=== PATIENT | female | born 1955 | race Caucasian/White ===

== ENCOUNTER 2019-01-11 13:08 | Emergency (ER) | payer MEDICARE, OTHER ==
[~2019-01-11] VITALS: Ht 162.6 cm; Wt 99.8 kg
[~2019-01-11 13:08] MED LIST: AMLODIPINE BESY10 MG PO; ASPIRIN EC325 MG; BACTRIM DS TAB1 EACH PO; LASIX40 MG PO; LEVAQUIN500 MG PO; MIRTAZAPINE15 MG PO; NEUPRO1 EAC1 TD; PANTOPRAZOLE SO40 MG PO; PREDNISONE5 MG PO; PROGRAF5 MG PO; REMERON15 M1 PO; Z.0.ALLOPURINOL100 M; Z.0.CLONIDINE HCL0.1; Z.0.HUMALOG100 UNIT/; Z.0.HYDRALAZINE HCL5; Z.0.LANTUS100 UNIT/1; Z.0.LIPITOR20 MG; Z.0.NORVASC5 MG PO; Z.0.ZOLOFT50 MG; ZOLOFT50 MG PO; [UNRECOGNIZED DRUG - OTHER]
--- OUTSIDE RECORDS SUMMARY | 2019-01-11 13:11 | XMS REPORT | Clinical Summary ---
Author Author [facility] Address Unknown Phone Unavailable Care Team Providers Care Global Product Manager Name Role Phone Leonidas Rodriguez MD Unavailable Ronaldo Gleason MD 24 MurrayMukherjeeMelania MD Unavailable Unavailable Wong Posey MD Unavailable Barbara Nevarez MD Unavailable Kamla Caldwell MD Unavailable Sandra Lee PCP Allergies No Known Allergies Medications End Date Status Medication Sig Dispensed Refills Start Date Active mirtazapine (REMERON) 15 Take 15 mg by 0 MG tablet mouth nightly. Active sertraline (ZOLOFT) 100 Take 1.5 30 tablet 0 201 MG tablet tablets (150 5 mg total) by mouth daily. Active pantoprazole (PROTONIX) Take 1 tablet 0 40 MG tablet (40 mg total) 5 by mouth daily. Active sulfamethoxazole-trimetho Take 1 tablet 0 prim (BACTRIM,SEPTRA) (80 mg of 5 400-80 mg per tablet trimethoprim total) by mouth daily. Active tacrolimus (PROGRAF) 0.5 Take 2 mg by 0 MG capsuleIndications: mouth 2 (two) 5 immunosuppression therapy times daily . for lung transplant Active predniSONE (DELTASONE) 5 Take 5 mg by 0 10/20/201 MG tablet mouth daily . 5 Active mycophenolate (MYFORTIC) Take 180 mg 0 180 MG EC tablet by mouth 3 (three) times daily . Active sodium bicarbonate 325 MG Take 325 mg 0 tablet by mouth daily Baking soda 2 teaspoon daily. Active tacrolimus (PROGRAF) 0.5 Take 2 mg by 0 MG capsule mouth 2 (two) times daily . Active amLODIPine (NORVASC) 10 Take 10 mg by 0 MG tablet mouth daily . Active famotidine (PEPCID) 20 MG Take 20 mg by 0 tablet mouth daily. Active cefixime (SUPRAX) 400 mg Take 400 mg 0 tablet by mouth daily Times 7 days . Active Problems Patient Care Coordination Note 1. End-stage renal disease secondary to diabetic nephropathy. A. Left upper arm arteriovenous fistula. B. Elevation of fistula completed 2. Hypertension. 3. Diabetes mellitus, type 2, nephropathy. 4. Gout. 5. Obesity. For gastric sleeve surgery 6. Cerebrovascular disease. A. Right carotid bruit, with 16-49% stenosis in 03/30 by doppler 7. Pelvic pain seeing [facility] rheumatology - need mri results and notes from rheum 8. Cardiac cath in 04/30 with no significant cad 7. Colonoscopy with tubular adenoma A. Continues with GI follow up Problem Noted Date Drainage from wound 06/10/2015 Last Assessment & Plan: Wound healing well. No longer requires BID dressing changes. S/P kidney transplant 06/10/2015 Last Assessment & Plan: Creatinine is 1.24. She is still producing adequate amounts of urine and shows no evidence of rejection. DM (diabetes mellitus) Overview: TYPE 2 L ast Assessment & Plan: Her blood sugars are controlled by her diet. She does not require insulin or oral medications. HTN (hypertension) Last Assessment & Plan: Her blood pressure is not controlled, typically ranging from 120s-160s/80s-90s. Today her SBP is 195 however she has not taken her medication. She will continue to follow with her healthcare interpreter for further adjustments. Gout Obesity Last Assessment & Plan: Losing weight s/p sleeve gastrectomy. Will continue to follow Pulmonary hypertension Overview: pPA 55-60 (05/30/15) Positive cardiac stress test Overview: normal cardiac Cath (05/30/15) Family History Medical History Relation Name Comments Diabetes Father Hypertension Father Diabetes Maternal Grandfather Hypertension Maternal Grandfather Diabetes Maternal Grandmother Hypertension Maternal Grandmother Diabetes Mother Hypertension Mother Diabetes Sister Hypertension Sister Relation Name Status Comments Father Maternal Grandfather Maternal Grandmother Mother Sister Social History Date Tobacco Use Types Packs/Day Years Used Quit: 11/28/2012 Former Smoker Cigarettes 0.4 30 Smokeless Tobacco: Current User Alcohol Use Drinks/Week oz/Week Comments No ONE EVERY 2 MONTHJS Sex Assigned at Date Recorded Not on file Industry Job Start Date Occupation Not on file Not on file Not on file Travel End Travel History Travel Start No recent travel history available. Last Filed Vital Signs Not on file Plan of Treatment Health Maintenance Due Date Last Done Comments INFLUENZA VACCINE 06/19/2018 Implants Device Identifier Shelf Expiration Date Model / Serial / Lot Implanted Type Area Manufactur er 11/16/2017 [id number] / / [id number] Stent,Uret Polaris 5fr X 10cm - Uro Stent Right: Ureter [employer] [id number] [employer]ENT[employer] Implanted: Qty: 1 on 06/01/2015 by Scott Faustin MD Results Not on fileafter 01/10/2018 Insurance Payer Benefit Subscriber ID Type Phone Address Plan / Group MEDICARE MEDICARE A xxxxxxxxxx Medicare B AETNA - MGD CARE AETNA HMO xxxxxxxxxx HMO/POS POS QPOS Advance Directives For more information, please contact: [facility] [address] [place] [phone] Date Inactivated Comments Code Status Date Activated 06/05/2015 7:20 PM Full Code 06/01/2015 1:11 PM This code status was determined by: Patient 06/01/2015 1:10 PM Full Code 05/31/2015 7:45 AM This code status was determined by: Patient 05/31/2015 7:45 AM Full Code 05/30/2015 11:21 PM This code status was determined by: Patient 03/30/2013 2:59 PM Patient will not be resuscitated by any method. Assignment of Code III designation: all existing treatment orders are automatically cancelled. The Attending Practitioner shall write new orders, including orders for feeding, if any, and supportive care. The Attending Practitioner and House Staff (if applicable) will be notified STAT upon cessation of vital signs, but no code will be called, nor will any actions be undertaken to restore vital signs Code THREE 03/30/2013 12:06 PM
--- OUTSIDE RECORDS SUMMARY | 2019-01-11 13:11 | XMS REPORT ---
Author Author [facility] Address Unknown Phone Unavailable Care Team Providers Care Horologist Apprentice Name Role Phone Unavailable Unavailable Problems This patient has no known problems. Allergies, Adverse Reactions, Alerts This patient has no known allergies or adverse reactions. Medications This patient has no known medications. Results Test Description Test Time Test Comments Text Results Atomic Results Result Comments SCR MAMM BILATERAL JUVENCIO CAD DIGITAL 2018-12-08 09:26:00 - SCR MAMM BILATERAL JUVENCIO CAD DIGITALBILATERAL DIGITAL SCREENING MAMMOGRAM 3D/2D WITH CAD: 12/07/2018CLINICAL: Asymptomatic. Current mammographic images were evaluated by either a [employer] The Simple, Fast and Elegant Tablet Sales App M-Vu or an iCAD version 7.2 computer aided detection system. Comparison is made to exams dated 08/09/2017 mammogram, 06/04/2016 mammogram, and 05/27/2015 mammogram - [facility]-. There are scattered fi broglandular tissues in both breasts. No suspicious mass, architectural distortion, malignant type calcification, or lymph node abnormality detected. Breast architecture is stable compared to prior exams.IMPRESSION: NEGATIVEThere is no mammographic evidence of malignancy. Resume annual screening mammography in one year. Olvin Barker M.D. qn/penrad:12/08/2018 09:26:00 Stoneworking Sander: Michelle Ramos , [facility]-FWletter sent: BIRADS 1-2 Normal Mammogram BI-RADS: 1 Negative
[2019-01-11] MEDS ORDERED: ONDANSETRON HCL INJ 2MG/ML 2ML 2 MG/ML VIAL ONE (13:43)
[2019-01-11] MEDS ORDERED: ONDANSETRON HCL 4 MG ORAL DISINTEGRATING TAB PO ONE (13:45)
[2019-01-11] MEDS ORDERED: LIDOCAINE VISC 2% SOLN 15 ML UDC PO ONE (13:45)
[2019-01-11] MEDS ORDERED: ASPIRIN 81 MG CHEW TAB PO ONE (13:45)
[2019-01-11] MEDS ORDERED: MAGNESIUM/ALUMINUM/SIMETHICONE 30 ML UDC PO ONE (13:45)
--- NOTE | 2019-01-11 14:50 | Diagnostic Imaging Report ---
EXAMINATION: CHEST SINGLE (NOT PORTABLE) INDICATION: Chest pain. COMPARISON: Report from chest radiograph dated 03/15/2016, although the images are not available for review. FINDINGS: TUBES and LINES: None. LUNGS: Lungs are well inflated. There is no evidence of lobar pneumonia or pulmonary edema. Mild patchy right basilar opacity, likely atelectasis. There is mild bronchial thickening. PLEURA: No pleural effusion or pneumothorax. HEART AND MEDIASTINUM: The cardiomediastinal silhouette is unremarkable. BONES AND SOFT TISSUES: No acute osseous abnormality. Partially seen cervical spine fixation hardware. UPPER ABDOMEN: No free air under the diaphragm. IMPRESSION: No acute radiographic abnormality. Mild bronchial wall thickening, which may reflect bronchitis in the appropriate clinical setting. Signed by: Dr. Jewels Crowder MD on 01/11/2019 2:47 PM
[2019-01-11] MEDS ORDERED: BELLADONNA ALK/PHENOBARBITAL 5 ML UDC PO SCH (15:00)
[2019-01-11 15:47] LABS: BASOPHILS % 0.5 % (0.0-1.0); EOSINOPHILS % 0.1 % (0.0-6.0); HEMATOCRIT 48.6 % (34.2-44.1); HEMOGLOBIN 15.5 g/dL (12.0-16.0); LYMPHOCYTES # (AUTO) 0.6 (1.0-3.2); LYMPHOCYTES % 6.3 % (18.0-39.1); MEAN CORPUSCULAR HEMOGLOBIN 28.3 pg (28-32); MEAN CORPUSCULAR HGB CONC 31.9 g/dL (31-35); MEAN CORPUSCULAR VOLUME 88.8 fL (81-99); MONOCYTES # (AUTO) 0.9 (0.2-0.8); MONOCYTES % 10.6 % (4.4-11.3); NEUTROPHILS # (AUTO) 7.3 (2.1-6.9); NEUTROPHILS % 81.7 % (38.7-80.0); PLATELET COUNT 186 x10e3/uL (140-360); RED BLOOD COUNT 5.47 x10e6/uL (3.6-5.1); RED CELL DISTRIBUTION WIDTH 13.1 % (11.7-14.4)
[2019-01-11 16:01] LABS: ALBUMIN 3.3 g/dL (3.5-5.0); ALBUMIN/GLOBULIN RATIO 0.8 (0.8-2.0); ANION GAP 17.3 mmol/L (8-16); CALCIUM 10.8 mg/dL (8.4-10.2); CREATININE, SERUM 1.46 mg/dL (0.57-1.11); POTASSIUM 4.3 mmol/L (3.5-5.1)
[2019-01-11 16:07] LABS: CREATINE KINASE MB 2.5 ng/mL (0-5.0)
[2019-01-11 18:48] LABS: BILIRUBIN,URINE 1+ (NEGATIVE); CLARITY,URINE SL CLOUDY (CLEAR); COLOR,URINE STRAW (YELLOW); KETONES,URINE NEGATIVE (NEGATIVE); LEUKOCYTE ESTERASE ,URINE NEGATIVE (NEGATIVE); NITRITE,URINE NEGATIVE (NEGATIVE); PROTEIN,URINE DIPSTICK TRACE (NEGATIVE); URINE UROBILINOGEN 1 mg/dL (0.2 - 1)
[2019-01-11 18:59] LABS: AMORPHOUS SEDIMENT,URINE MANY (FEW); BACTERIA,URINE MANY /HPF
[2019-01-11 19:53] LABS: CREATINE KINASE MB 2.3 ng/mL (0-5.0)
== END 2019-01-11 21:03 | disposition home or self-care (01) ==
LOC: ER 13:08
DX: R10.13 Epigastric pain (principal); R07.89 Other chest pain; R11.2 Nausea with vomiting, unspecified; R19.7 Diarrhea, unspecified; I10 Essential (primary) hypertension; M10.9 Gout, unspecified; Z94.0 Kidney transplant status
CPT/HCPCS: 36415; 71045; 80053; 81001; 82550; 82553; 83690; 83880; 84484; 85025; 87086; 87186; 93005; 99284; J2405

== ENCOUNTER 2019-01-23 16:38 | Inpatient (IN) | payer MEDICARE ==
[~2019-01-23] VITALS: Ht 162.6 cm; Wt 113.9 kg
--- OUTSIDE RECORDS SUMMARY | 2019-01-23 16:42 | XMS REPORT | Clinical Summary ---
Author Author [facility] Address Unknown Phone Unavailable Care Team Providers Care Personalized Living Assistant Name Role Phone Leonidas Rodriguez MD Unavailable Ronaldo Gleason MD 24 MurrayMukherjeeMelania MD Unavailable Unavailable oWng Posey MD Unavailable Barbara Nevarez MD Unavailable [...] 03/30 by doppler 7. Pelvic pain seeing [facility] rheumatology - need mri results and notes [...] She will continue to follow with her groundskeeper supervisor for further adjustments. Gout Obesity Last Assessment [...] Lot Implanted Type Area Manufactur er 11/16/2017 [id number] / / [id number] Stent,Uret Polaris 5fr X 10cm - Uro Stent Right: Ureter [employer] [id number] [employer]ENT[employer] Implanted: Qty: 1 on 06/01/2015 by Scott Faustin MD Results Not on fileafter 01/22/2018 Insurance Payer Benefit Subscriber ID Type Phone Address Plan / Group MEDICARE MEDICARE A xxxxxxxxxx Medicare B AETNA - MGD CARE AETNA HMO xxxxxxxxxx HMO/POS POS QPOS (Home) [place] [address] Advance Directives For more information, please contact: [facility] [address] [place] [phone] Date Inactivated Comments Code Status Date [...]
[2019-01-23] MEDS ORDERED: SODIUM CHLORIDE 0.9% 1000ML 1,000 ML IV STA ×2 (16:50→19:10)
[2019-01-23 17:44] LABS: BASOPHILS # (AUTO) 0.2 (0.0-0.1); BASOPHILS % 0.8 % (0.0-1.0); EOSINOPHILS % 0.2 % (0.0-6.0); HEMATOCRIT 42.6 % (34.2-44.1); HEMOGLOBIN 13.7 g/dL (12.0-16.0); LYMPHOCYTES # (AUTO) 0.6 (1.0-3.2); LYMPHOCYTES % 2.9 % (18.0-39.1); MEAN CORPUSCULAR HEMOGLOBIN 27.4 pg (28-32); MEAN CORPUSCULAR HGB CONC 32.2 g/dL (31-35); MEAN CORPUSCULAR VOLUME 85.2 fL (81-99); MONOCYTES # (AUTO) 1.3 (0.2-0.8); MONOCYTES % 6.3 % (4.4-11.3); NEUTROPHILS # (AUTO) 16.8 (2.1-6.9); NEUTROPHILS % 84.1 % (38.7-80.0); PLATELET COUNT 120 x10e3/uL (140-360); RED CELL DISTRIBUTION WIDTH 14.6 % (11.7-14.4)
--- NOTE | 2019-01-23 17:49 | Diagnostic Imaging Report ---
EXAMINATION: CHEST SINGLE (PORTABLE) INDICATION: Shortness of breath. COMPARISON: . FINDINGS: TUBES and LINES: None. LUNGS: Lungs are well inflated. Mild prominence of the pulmonary vasculature.. PLEURA: No pleural effusion or pneumothorax. HEART AND MEDIASTINUM: Cardiac size is mildly enlarged. BONES AND SOFT TISSUES: No acute osseous abnormality. Partially seen lower cervical spinal fusion hardware. UPPER ABDOMEN: No free air under the diaphragm. IMPRESSION: Findings suggestive of mild pulmonary venous congestion. Signed by: Dr. Andrea Alcocer M.D. on 01/23/2019 5:45 PM
[2019-01-23 17:53] LABS: INR 1.76; PROTHROMBIN TIME 21.2 seconds (11.9-14.5)
[2019-01-23 17:54] LABS: PARTIAL THROMBOPLASTIN TIME 25.1 seconds (23.8-35.5)
[2019-01-23 18:07] LABS: ALBUMIN 2.3 g/dL (3.5-5.0); ALBUMIN/GLOBULIN RATIO 0.7 (0.8-2.0); CREATININE, SERUM 3.71 mg/dL (0.57-1.11); MAGNESIUM 2.1 MG/DL (1.3-2.1)
[2019-01-23 18:15] LABS: B-TYPE NATRIURETIC PEPTIDE2 541.2 pg/mL (0-100)
[2019-01-23 18:27] LABS: CREATINE KINASE MB 7.8 ng/mL (0-5.0); THYROID STIMULATING HORMONE 4.408 uIU/mL (0.350-4.940)
[2019-01-23] MEDS ORDERED: CEFEPIME 2 GM/NS 0.9% 100 ML 100 ML IV NR (18:45)
[2019-01-23 19:01] LABS: CLARITY,URINE CLOUDY (CLEAR); COLOR,URINE YELLOW (YELLOW)
[2019-01-23 19:02] LABS: BILIRUBIN,URINE 2+ (NEGATIVE); KETONES,URINE TRACE (NEGATIVE); LEUKOCYTE ESTERASE ,URINE 2+ (NEGATIVE); NITRITE,URINE NEGATIVE (NEGATIVE); PROTEIN,URINE DIPSTICK TRACE (NEGATIVE); URINE UROBILINOGEN 1 mg/dL (0.2 - 1)
[2019-01-23 19:34] LABS: AMORPHOUS SEDIMENT,URINE MODERATE (FEW); EPITHELIAL CELLS,URINE MANY /LPF; TRANSITIONAL EPI CELLS,URINE MANY; WBC,URINE (MAN) >50 /HPF (0-5)
[2019-01-23] MEDS ORDERED: METRONIDAZOLE500 MG PO (19:46)
[2019-01-23] MEDS ORDERED: SUCRALFATE1 GM PO (19:46)
[2019-01-23] MEDS ORDERED: LISINOPRIL2.5 MG PO (19:46)
[2019-01-23] MEDS ORDERED: TYLENOL WITH C1 EACH PO (19:46)
[2019-01-23] MEDS ORDERED: MYCOPHENOLATE250 MG PO (19:46)
[2019-01-23] MEDS ORDERED: TACROLIMUS1 MG PO (19:48)
--- NOTE | 2019-01-23 19:48 | NUR ---
PATIENT MED REC ORDER INCOMPLETE. PATIENT UNSURE OF ALL HER MEDS
--- NOTE | 2019-01-23 20:05 | Diagnostic Imaging Report ---
EXAM: CT Abdomen and Pelvis WITHOUT contrast INDICATION: Abdominal pain. History of liver cancer. COMPARISON: None. TECHNIQUE: Abdomen and pelvis were scanned utilizing a multidetector helical scanner from the lung base to the pubic symphysis without administration of IV contrast. Absence of intravenous contrast decreases sensitivity for detection of focal lesions and vascular pathology. Coronal and sagittal reformations were obtained. Routine protocol was performed. IV CONTRAST: None. Withheld due to a low GFR. ORAL CONTRAST: Water RADIATION DOSE: Total DLP: 803.42 mGy*cm Estimated effective dose: (DLP x 0.015 x size factor) mSv COMPLICATIONS: None FINDINGS: LINES and TUBES: None. LOWER THORAX: Bibasilar dependent atelectasis. HEPATOBILIARY: The liver is nodular in contour. Evaluate show limited due to the lack of contrast, however, there are low-attenuation lesions scattered throughout the hepatic parenchyma the largest in the hepatic dome estimated at 6.3 cm on image 12; this may represent multifocal HCC versus less likely hepatic metastasis. No biliary ductal dilation. GALLBLADDER: Hyperdense material within the gallbladder lumen suggestive of calculi and No wall thickening. SPLEEN: No splenomegaly. PANCREAS: No focal masses or ductal dilatation. ADRENALS: 8 mm left adrenal adenoma. KIDNEYS/URETERS: No hydronephrosis. Bilateral atrophic kidneys. Transplant kidney in the right iliac fossa without hydronephrosis, or shadowing nephrolithiasis. GI TRACT: No abnormal distention, wall thickening, or evidence of bowel obstruction. Postoperative changes involving the stomach suggestive of bariatric surgery, possibly gastric sleeve. Appendix is normal. Colonic diverticulosis. Evaluate for diverticulitis small limited due to the presence of ascites, and stranding of the mesenteric fat. PELVIC ORGANS/BLADDER: 3 fluid in the cul-de-sac. LYMPH NODES: No lymphadenopathy. VESSELS: There is moderate atherosclerotic disease in the aorta and major arterial branches. PERITONEUM / RETROPERITONEUM: Small volume of perihepatic and perisplenic ascites. BONES: There are degenerative changes in the lumbar spine. Grade 1 anterolisthesis of L4 in relation to L5. SOFT TISSUES: Unremarkable. IMPRESSION: 1. Cirrhotic hepatic morphology. Multifocal hepatic masses not well evaluated with this noncontrast examination however, likely multifocal hepatocellular carcinoma. 2. Findings suggestive of cholelithiasis and gallbladder sludge. 3. Colonic diverticulosis without definite diverticulitis. 4. Small volume ascites. Signed by: Dr. Andrea Alcocer M.D. on 01/23/2019 8:02 PM
[2019-01-23] MEDS ORDERED: ONDANSETRON HCL INJ 2MG/ML 2ML 2 MG/ML VIAL IV PRN (20:15)
[2019-01-23] MEDS ORDERED: VANCOMYCIN 1GM/NS 250 ML 250 ML IV ONE (20:15)
--- OUTSIDE RECORDS SUMMARY | 2019-01-23 20:33 | XMS REPORT | Clinical Summary ---
Author Author [facility] Address Unknown Phone Unavailable Care Team Providers Care Pinked Edge Sewing Machine Operator Name Role Phone Leonidas Rodriguez MD Unavailable [...] 03/30 by doppler 7. Pelvic pain seeing [facility] rheumatology - need mri results and notes [...] She will continue to follow with her executive officer special warfare team for further adjustments. Gout Obesity Last Assessment [...] Lot Implanted Type Area Manufactur er 11/16/2017 [id number] / / [id number] Stent,Uret Polaris 5fr X 10cm - Uro Stent Right: Ureter [employer] [id number] SCIENTIFIC Implanted: Qty: 1 on 06/01/2015 by Scott Faustin MD Results Not on fileafter 01/22/2018 Insurance Payer Benefit Subscriber ID Type Phone Address Plan / Group MEDICARE MEDICARE A xxxxxxxxxx Medicare B AETNA - MGD CARE AETNA HMO xxxxxxxxxx HMO/POS POS QPOS (Home) [place] [address] Advance Directives For more information, please contact: [facility] [address] [place] [phone] Date Inactivated Comments Code Status Date [...]
[2019-01-23] MEDS: CEFEPIME 1GM/NS 0.9% 50 ML 50 ML IV SCH (21:18)
[2019-01-23] MEDS: SODIUM CHLORIDE 0.9% 1000ML 1,000 ML IV SCH (21:51)
[2019-01-23 22:04] LABS: LYMPHOCYTES % (MANUAL) 3 % (19-48); MONOCYTES % (MANUAL) 3 % (3.4-9.0); MYELOCYTES % (MANUAL) 1 % (0-0); NEUTROPHILS % (MANUAL) 91 % (40-74)
[2019-01-23] MEDS: METRONIDAZOLE 500MG/NS 100ML 100 ML IV SCH (23:24)
[2019-01-23] MEDS ORDERED: SODIUM CHLORIDE 0.9% 1000ML 1,000 ML IV ONE (23:45)
[2019-01-24] VITALS (10 sets, daily range): BP systolic 90–119; BP diastolic 41–54
[2019-01-24] MEDS: SODIUM CHLORIDE 0.9% 1000ML 1,000 ML IV SCH (04:12)
[2019-01-24] MEDS: METRONIDAZOLE 500MG/NS 100ML 100 ML IV SCH ×3 (06:12→21:35)
--- NOTE | 2019-01-24 07:24 | NUR ---
pt resting in bed, alert and oriented, no c/o pain or s/s distress. will continue to monitor
[2019-01-24 08:53] LABS: BASOPHILS # (AUTO) 0.1 (0.0-0.1); BASOPHILS % 0.6 % (0.0-1.0); EOSINOPHILS # (AUTO) 0.1 (0.0-0.4); EOSINOPHILS % 0.7 % (0.0-6.0); HEMATOCRIT 38.1 % (34.2-44.1); HEMOGLOBIN 12.9 g/dL (12.0-16.0); LYMPHOCYTES # (AUTO) 0.8 (1.0-3.2); LYMPHOCYTES % 4.4 % (18.0-39.1); MEAN CORPUSCULAR HGB CONC 33.9 g/dL (31-35); MEAN CORPUSCULAR VOLUME 82.8 fL (81-99); MONOCYTES # (AUTO) 1.4 (0.2-0.8); MONOCYTES % 7.6 % (4.4-11.3); NEUTROPHILS # (AUTO) 15.3 (2.1-6.9); NEUTROPHILS % 81.7 % (38.7-80.0); PLATELET COUNT 111 x10e3/uL (140-360); RED CELL DISTRIBUTION WIDTH 14.7 % (11.7-14.4)
[2019-01-24 09:37] LABS: ALBUMIN 2.1 g/dL (3.5-5.0); ALBUMIN/GLOBULIN RATIO 0.7 (0.8-2.0); ANION GAP 18.9 mmol/L (8-16); CALCIUM 9.2 mg/dL (8.4-10.2); CREATININE, SERUM 3.65 mg/dL (0.57-1.11); POTASSIUM 3.9 mmol/L (3.5-5.1)
[2019-01-24] MEDS ORDERED: SODIUM BICARBONATE 8.4% 50 ML VIAL IV SCH (11:00)
[2019-01-24] MEDS: SODIUM BICARBONATE 8.4% 150 ML in DEXTROSE 5% 1,000 ML IV SCH (11:56)
--- NOTE | 2019-01-24 12:01 | NUR ---
EDUCATED ABOUT IMM GOT SIGNATURE AND FILED IN CHART WITH COPY LEFT AT BEDSIDE WITH CARD FOR ANY FURTHER QUESTIONS.
--- NOTE | 2019-01-24 13:17 | NUR ---
WOUND CARE CONSULTATION - INITIAL EVALUATION Patient admitted from home for dehydration, diarrhea for approx 5 weeks, Dyspnea, & HTN. LABS: WBC18.71 HGB12.9 HCT38.1 NEUT%81.7 [id number] Urine Culture: Pending Blood Culture:Pending C-Diff ToxinPending PATIENT VISIT: Patient AAOX4, calm cooperative. Patient on IV ABX - Vancomycin, Cefepime, Flagyl Haseeb Score 19 Able to turn self. Presents with green liquid stools,& complains of burning sensation to perirectal and groin areas. Perirectal and perineal areas reddened. Reviewed plan of care for area and agreeable. Education provided- perineal care and reviewed barrier creams. Verbalized understanding importance of cleansing area with mild soap and water and drying thoroughly before application of barrier creams. States to have been using A&D ointment at home for a single time. Will need continued reinforcement. IMPRESSION: Perirectal/ Perineum- Incontinence Related Dermatitis - Gently wash area with mild soap and water and pat dry thoroughly - Apply Lantiseptic Cream q12H and PRN Soiling. RECOMMENDATION: Perirectal/ Perineum- Incontinence Related Dermatitis - Gently wash area with mild soap and water and pat dry thoroughly - Apply Lantiseptic Cream q12H and PRN Soiling Thank you for consulting with Wound Care. Addendum: 01/24/19 at 1327 by Gildardo Yan RN Amended: Links added.
[2019-01-24] MEDS ORDERED: MYCOPHENOLATE MOFETIL 250 MG CAP PO SCH (15:00)
--- NOTE | 2019-01-24 15:16 | NUR ---
pt off unit for test
--- NOTE | 2019-01-24 16:29 | Diagnostic Imaging Report ---
Ventilation/perfusion lung scan Clinical Information: Acute onset SOB Comparison: Chest radiograph 01/23/2019 Discussion: Xenon-133 gas 7.4 mCi was administered via inhalation. Dynamic images of the lungs in the posterior projection were obtained through single breath, equilibrium, and washout phases. Distribution of tracer activity is irregular throughout the lungs. There are no segmental ventilatory defects. Compression effect is seen on the LLL due to the enlarged heart. Washout of tracer is diffusely delayed with air trapping throughout the left lung. Perfusion images of the lungs were obtained in multiple projections following intravenous administration of approximately 6 mCi of Tc-99m MAA. Distribution of tracer is irregular throughout the lungs. Compression effect is present in the LLL due to the enlarged heart. The contours of the lungs are well demarcated. There are no segmental perfusion defects. The cardiomediastinal silhouette is enlarged. Impression: 1. Scan findings represent a VERY LOW probability for acute pulmonary embolic disease based on the PIOPED II criteria. 2. Scan evidence of diffuse parenchymal and/or obstructive lung disease. 3. Enlarged cardiac silhouette. Signed by: Dr. Yani Beatty M.D. on 01/24/2019 4:26 PM
[2019-01-24] MEDS ORDERED: TACROLIMUS 1 MG CAP PO SCH (17:00)
[2019-01-24] MEDS: LANOLIN 4.5 OZ OINT TP SCH (17:18)
[2019-01-24] MEDS: TACROLIMUS 0.5 MG CAP PO SCH (17:32)
--- NOTE | 2019-01-24 17:53 | History and Physical ---
CHIEF COMPLAINT: Weakness, not feeling well. HISTORY OF PRESENT ILLNESS: This is a 63-year-old female, who was just recently admitted at [facility], found to have hepatocellular carcinoma on that admission, who came in at that time with complaints of abdominal pain, nausea, vomiting, CT scan consistent with abdominal mass status post liver biopsy consistent with vital cervical carcinoma, comes in with worsening generalized weakness, not feeding well for the last several days. The patient denies any fever at home, nausea, vomiting, or any diarrhea. Denies any abdominal pain. Reports having some generalized weakness. On admission, the patient was found to be hypotensive, concerns for underlying sepsis and underlying urinary tract infection. The patient is seen and evaluated at bedside on the medical floor, currently doing much better. In IMCU, vital signs were much more stable. REVIEW OF SYSTEMS: Pertinent positives: Generalized weakness, recent hepatocellular carcinoma diagnosis. Pertinent negatives: Denies any chest pain, palpitation, nausea, vomiting, diarrhea, dysuria, hematuria, frequency, urgency, lightheadedness, dizziness, abdominal pain, headache, shortness of breath, cough, congestion, fever, or any other complaints. The rest of the 14-point review of systems have been reviewed with the patient and are negative. ALLERGIES: NO KNOWN DRUG ALLERGIES. HOME MEDICATIONS: MMF 180 mg p.o. t.i.d., Protonix 40 mg daily, prednisone 10 mg daily, tacrolimus 0.5 mg p.o. b.i.d., lisinopril 2.5 mg daily, sucralfate 1 g p.o. q.i.d., Tylenol with Codeine. PAST MEDICAL HISTORY: She has donor kidney transplant, renal failure in the past and recent diagnosis of hepatocellular carcinoma. PAST SURGICAL HISTORY: Recent biopsy of the liver diagnosed with hepatocellular carcinoma. FAMILY HISTORY: Hypertension and diabetes. SOCIAL HISTORY: No drugs. No alcohol. Does not smoke. Good social support. PHYSICAL EXAMINATION: VITAL SIGNS: Temperature is 96.6, pulse 92, respiratory rate is 22, last blood pressure recorded 99/46, pulse ox 98% on nasal cannula. GENERAL: Not in acute distress. Alert and oriented x3. Cooperative on examination. HEENT: Head is normocephalic and atraumatic. Eyes; pupils are equal, round, and reactive to light bilaterally. Extraocular movements are intact bilaterally. Throat, no evidence of erythema or exudates in the posterior pharynx. Has poor dentition. NECK: Supple. Good range of motion. PULMONARY: Clear to auscultation bilaterally. No wheezing, no rales, no rhonchi, no crackles appreciated. CARDIOVASCULAR: Positive S1, S2. No murmurs, rubs, or gallops appreciated. ABDOMEN: Soft, nondistended, and nontender to palpation. Bowel sounds present. MUSCULOSKELETAL: Strength is 5/5 throughout. No evidence of any muscle deficits on examination. No weakness appreciated. NEUROLOGICAL: Cranial nerves 2 through 12 grossly intact. No evidence of any neurological deficits on exam. SKIN: Intact. Warm to touch. Good cap refill. PSYCHIATRIC: Normal affect and mood. EXTREMITIES: No edema. Good range of motion throughout. LAB FINDINGS: Show white count on admission 19.9, now 18.7; hemoglobin 12.9; hematocrit is 38; platelets of 111. PT 21, INR 1.7, PTT 25. Chemistry; sodium 139, potassium 3.9, chloride 111, bicarb 13, anion gap of 18, BUN 92, creatinine is 3.65, glucose is 142. Lactic acid from last time was 38.9. Calcium was 9.2. Total bilirubin 2.2, AST 113, ALT 62. CK 410. Troponins were negative. TSH is 4.4. Urinalysis is cloudy. C difficile toxin pending. MICROBIOLOGY: Urine cultures, gram-negative rods. Blood cultures, 2/2 still pending. IMAGING STUDIES: CT abdomen and pelvis shows cirrhotic hepatic morphology, multifocal hepatic masses evaluated with noncontrast CT most likely multifocal hepatocellular carcinoma which she has been recently diagnosed. Small volume ascites. Chest x-ray consistent with pulmonary vascular congestion. IMPRESSION: 1. Sepsis secondary to underlying urinary tract infection with leukocytosis and hypotension, present on admission. 2. Anion gap metabolic acidosis with lactic acidosis. 3. Hypotension. 4. Recent diagnosis of hepatocellular carcinoma. 5. donor kidney transplant. PLAN: At this time, the patient is on broad-spectrum IV antibiotics, blood and urine cultures are pending. Preliminary urine culture shows gram-negative rods. ID was consulted. We will start on bicarbonate drip at 125 mL/h, stop normal saline. Consult with the patient's primary seaman officer in relation to her kidney transplantation. We are going to continue with same medications for her transplant for now. Put on heparin for DVT prophylaxis. Get PT, OT eval. I am going to consult with her oncologist, Dr. Houser, in relation to her hepatocellular carcinoma diagnosis. Otherwise, we will continue with same plan of care at this time. I spent more than 40 minutes of critical care time on this case. MD KATHY Carrera/MODKaila /[id number]
--- NOTE | 2019-01-24 19:30 | NUR ---
round in the patient room at this time. MD discussed about patient diagnosed results and care plan with the patient and patient's friends.
[2019-01-24] MEDS ORDERED: DIPHENOXYLATE/ATROPINE TAB PO PRN (20:00)
[2019-01-24] MEDS ORDERED: MORPHINE SULFATE 2 MG/ML SYR 1ML IV PRN (20:00)
[2019-01-24] MEDS ORDERED: ONDANSETRON HCL INJ 2MG/ML 2ML 2 MG/ML VIAL IV SCH (20:00)
[2019-01-24] MEDS: MORPHINE SULFATE INJ 4 MG/ML INJ 1ML IV PRN (20:15)
[2019-01-24] MEDS: CEFEPIME 1GM/NS 0.9% 50 ML 50 ML IV SCH (20:15)
[2019-01-24] MEDS: MYCOPHENOLATE 180 MG PO SCH (21:34)
[2019-01-24] MEDS: HEPARIN SOD (PORCINE) 5,000 UNIT/ML VIAL SC SCH (21:34)
--- NOTE | 2019-01-24 23:33 | Consultation ---
DATE OF CONSULTATION: 01/24/2019 HISTORY OF PRESENT ILLNESS: Ms. Veronica Way is known to our Nephrology Service. She is status post cadaveric renal transplant back in 2014, maintained on mycophenolate mofetil 180 mg p.o. t.i.d., is on lisinopril 2.5 mg daily, also takes prednisone 5 mg daily, tacrolimus 0.5 mg p.o. b.i.d. She presented with weakness, lethargy, failure to thrive, nausea, profuse diarrhea, vomiting x1, and weakness, inability to walk. She was recently discharged as of Tuesday at [facility]. She was told she had liver cancer. She was supposed to call follow up with the cancer doctor this week. She had an EGD also done, which showed a gastric ulcer, esophagitis, and gastritis. She has been admitted here with dehydration, acute kidney injury, and possible infection. Her lab show white count 18.7, hemoglobin 12.9, sodium 139, potassium 3.9, bicarbonate 13 with a BUN 92, creatinine 3.65, lactic acid of 39, calcium 9.2, total bilirubin 2.2, AST and ALT elevated at 113 and 62, alkaline phosphatase 410, and CK 72. She is currently lying supine. She is awake, alert, follows commands. She complains of weakness, lethargy, and nausea. No vomiting. Her workup also included a CT scan, which was done without contrast shows cirrhotic hepatic morphology, multifocal hepatic masses, not well evaluated, likely multifocal hepatocellular carcinoma, also findings suggestive of cholelithiasis and gallbladder sludge, colonic diverticulosis without definite diverticulitis, small volume ascites. Transplant kidney in the right iliac fossa without hydronephrosis, shadowing, or nephrolithiasis. She is currently awake, alert, lying supine. CURRENT MEDICATIONS: Include cefepime 1 g IV q.24, she is on dextrose with bicarb at 125 mL an hour. She is on Flagyl. She received normal saline bolus. She received one time dose of vancomycin. She is also on mycophenolate, pantoprazole, prednisone, and tacrolimus. She has Dr. Urias on the case as well. PHYSICAL EXAMINATION: GENERAL: Awake, alert, lying supine, in no apparent distress with a blood pressure 109/46, pulse rate 88, afebrile, oxygen saturation 99% on nasal cannula. HEAD AND NECK: Cornea clear. Mild conjunctival icterus. Oral mucosa dry. Neck veins flat. LUNGS: Relatively clear. No rales or rhonchi. HEART: S1, S2 audible. ABDOMEN: Mildly tender, full mostly in the epigastrium. EXTREMITIES: Lower extremity examination shows no edema. IMPRESSION AND PLAN: Acute on chronic kidney failure, underlying chronic rejection, cadaveric renal transplant, on immunosuppression, severe metabolic acidosis, hepatic metastases, possible multifocal hepatocellular carcinoma, history of recent EGD showing gastric ulcers, strongly recommend GI consultation. I will speak with Dr. Milan. Recommend strict intake and output. Please see orders. MD ANA Krishnamurthy/LULU /[id number]
--- NOTE | 2019-01-24 23:45 | NUR ---
ASSESSMENT: Spiritual Distress Pt's overwhelmed by 's illness and life events. Pt's angry at 's friends for their involvement with pt. Pt's expressing uncontrolled emotions thru outbursts, weeping and lack of self-control. Intervention: Provided empathic listening, directives, and calming presence. Encouraged pt's family to assist in support. Facilitated family communication. Provided prayer. Outcome: Pt & family expressed appreciation for support. Followed up with nursing and security. Will follow as able. BRIGITTE [employer] Faculty Member Spiritual Care Department O: [phone] Pager: [phone] ([phone] number calling from)
[2019-01-25] VITALS (9 sets, daily range): BP systolic 96–102; BP diastolic 47–86
[2019-01-25] MEDS: SODIUM BICARBONATE 8.4% 150 ML in DEXTROSE 5% 1,000 ML IV SCH ×3 (00:40→16:51)
[2019-01-25] MEDS: LANOLIN 4.5 OZ OINT TP SCH ×2 (01:27→13:46)
[2019-01-25] MEDS: ONDANSETRON HCL INJ 2MG/ML 2ML 2 MG/ML VIAL IV SCH ×4 (02:28→20:19)
[2019-01-25] MEDS: METRONIDAZOLE 500MG/NS 100ML 100 ML IV SCH (05:44)
[2019-01-25] MEDS: TACROLIMUS 0.5 MG CAP PO SCH ×2 (05:44→17:14)
[2019-01-25 05:48] LABS: BASOPHILS % 0.1 % (0.0-1.0); EOSINOPHILS % 0.1 % (0.0-6.0); HEMATOCRIT 40.3 % (34.2-44.1); HEMOGLOBIN 13.7 g/dL (12.0-16.0); LYMPHOCYTES # (AUTO) 1.1 (1.0-3.2); LYMPHOCYTES % 6.1 % (18.0-39.1); MEAN CORPUSCULAR HEMOGLOBIN 28.4 pg (28-32); MEAN CORPUSCULAR VOLUME 83.6 fL (81-99); MONOCYTES # (AUTO) 1.4 (0.2-0.8); MONOCYTES % 7.7 % (4.4-11.3); NEUTROPHILS # (AUTO) 14.8 (2.1-6.9); NEUTROPHILS % 79.1 % (38.7-80.0); PLATELET COUNT 114 x10e3/uL (140-360); RED BLOOD COUNT 4.82 x10e6/uL (3.6-5.1); RED CELL DISTRIBUTION WIDTH 15.1 % (11.7-14.4)
[2019-01-25 06:12] LABS: ALBUMIN 2.1 g/dL (3.5-5.0); BILIRUBIN,DIRECT 2.1 mg/dL (0.0-0.5)
[2019-01-25 06:13] LABS: ANION GAP 19.6 mmol/L (8-16); CALCIUM 9.1 mg/dL (8.4-10.2); CREATININE, SERUM 3.77 mg/dL (0.57-1.11); POTASSIUM 3.6 mmol/L (3.5-5.1)
--- NOTE | 2019-01-25 07:04 | NUR ---
Report given to AM nurse,walking round done.
[2019-01-25] MEDS: PANTOPRAZOLE SOD 40 MG TABEC PO SCH (08:20)
[2019-01-25] MEDS: PREDNISONE 5 MG TAB PO SCH (08:20)
--- NOTE | 2019-01-25 09:16 | NUR ---
Spoke with Dr. Aranda (Oncology) asked if ok to give heparin 5,000 Units SQ received orders to give heparin sq.
[2019-01-25] MEDS: HEPARIN SOD (PORCINE) 5,000 UNIT/ML VIAL SC SCH ×2 (10:22→20:27)
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
[2019-01-25] MEDS: MYCOPHENOLATE 180 MG PO SCH ×3 (11:09→20:19)
[2019-01-25 13:28] LABS: LYMPHOCYTES % (MANUAL) 6 % (19-48); MONOCYTES % (MANUAL) 5 % (3.4-9.0); MYELOCYTES % (MANUAL) 2 % (0-0); NEUTROPHILS % (MANUAL) 87 % (40-74); PLATELET ESTIMATE SLIGHTLY DECREASED; PLATELET MORPHOLOGY COMMENT NORMAL; RBC MORPHOLOGY COMMENT NORMAL
[2019-01-25] MEDS: CEFAZOLIN SOD 1 GM/NS 50ML 50 ML IV SCH (13:43)
[2019-01-25] MEDS ORDERED: MIDODRINE 2.5 MG TAB PO SCH (16:00)
[2019-01-25] MEDS: MIDODRINE HCL 5 MG TABLET PO SCH (16:51)
[2019-01-25] MEDS: MORPHINE SULFATE INJ 4 MG/ML INJ 1ML IV PRN (16:51)
[2019-01-25] MEDS: SENNA-S TABLET PO SCH (20:19)
--- NOTE | 2019-01-25 20:35 | Progress Note ---
DATE: 01/25/2019 Medicine Progress Note SUBJECTIVE: The patient is doing well, much better today compared to yesterday. She is still very lethargic and weak on exam. Family and the patient have now agreed to hospice services and we got Case Management involved. OBJECTIVE: VITAL SIGNS: Temperature is 97, pulse 87, respiratory rate is 20, blood pressure is 102/59, and pulse ox 98% on 2 L nasal cannula. GENERAL: Not in acute distress. Alert and oriented x3. Cooperative on examination. HEENT: Head is normocephalic and atraumatic. Eyes; pupils are equal, round, and reactive to light bilaterally. Extraocular movements are intact bilaterally. Throat, no evidence of erythema or exudates in the posterior pharynx. Has poor dentition. NECK: Supple. Good range of motion. PULMONARY: Clear to auscultation bilaterally. No wheezing, no rales, no rhonchi, no crackles appreciated. CARDIOVASCULAR: Positive S1, S2. No murmurs, rubs, or gallops appreciated. ABDOMEN: Soft, nondistended, and nontender to palpation. Bowel sounds present. MUSCULOSKELETAL: Strength is 5/5 throughout. No evidence of any muscle deficits on examination. No weakness appreciated. NEUROLOGICAL: Cranial nerves II through XII grossly intact. No evidence of any neurological deficits on exam. SKIN: Intact. Warm to touch. Good cap refill. PSYCHIATRIC: Normal affect and mood. EXTREMITIES: No edema. Good range of motion throughout. LAB FINDINGS: Show white count 18.6, hemoglobin 13.7, hematocrit 40, and platelets of 114. Chemistry; sodium 134, potassium 3.6, chloride 102, bicarb 16, anion gap of 19, BUN is 98, creatinine is 3.77, glucose is 227, lactic acid is 25, calcium is 9.1. LFTs are slightly elevated. Total bilirubin was 2.2. Troponins were 0.033, albumin is 2.1. MICROBIOLOGY: Urine cultures are positive for E coli. Blood cultures, no growth. IMAGING STUDIES: V/Q scan shows very low probability for acute pulmonary embolism. IMPRESSION: 1. Sepsis secondary to urinary tract infection with leukocytosis and hypotension. 2. Anion gap metabolic acidosis. 3. Hypotension. 4. Stage IV hepatocellular carcinoma. 5. donor kidney transplant. 6. Generalized weakness and debility. PLAN: At this time, continue with IV antibiotics. Get a.m. labs. ID is following accordingly. Urine cultures positive. Blood cultures, no growth. Repeat labs in the morning. Monitor for leukocytosis. In relation to her renal function and her transplant, Nephrology was consulted and managing accordingly. Apparently, the oncologist spoke with the patient and they have discussed about hospice services and we should see that the patient has agreed to go ahead and go on hospice. At this time, they are working via Case Management with hospice services for this patient. Otherwise, we will continue same plan of care. Monitor very closely. Get repeat labs in the morning. MD KATHY Carrera/LULU /[id number]
--- NOTE | 2019-01-25 21:25 | Consultation ---
DATE OF CONSULTATION: 01/25/2019 REASON FOR CONSULTATION: The patient is concerned about infection. HISTORY OF PRESENT ILLNESS: This patient, who is a 63-year-old white female. She was recently at [facility]. She was found to have a hepatocellular carcinoma and the patient was discharged home. She is coming now with abdominal pain, nausea, vomiting, not feeling well. Her CAT scan showed that she had abdominal mass and she did have a liver biopsy. The patient comes in with worsening weakness, not feeling well, not eating well, nausea. There was no fever before she came here and there is nausea and vomiting, but there is no diarrhea, no abdominal pain. The patient was admitted after she was found to be hypotensive in the emergency room. The patient was admitted on January 23, 2019. I was asked to see her. The patient is currently lying in bed comfortably, feeling weak in general. PAST MEDICAL HISTORY: Recently diagnosed hepatocellular carcinoma. PAST SURGICAL HISTORY: Liver biopsy. ALLERGIES: NKA. SOCIAL HISTORY: There is no smoking, drug abuse, or alcohol abuse. FAMILY HISTORY: Hypertension and diabetes. MEDICATIONS: Home Medications: She is on: 1. Protonix. 2. Prednisone 10 mg daily. She is currently on: 1. Heparin. 2. Zofran. 3. Prednisone. 4. Protonix. 5. Metronidazole. 6. Cefepime. REVIEW OF SYSTEMS: GENERAL: She is just not feeling well, weak in general, feeling feverish and chills. HEENT: There is no headache, visual changes, or hearing changes. GI: There is some nausea and occasional vomiting, but not recent. : There is no urgency and no frequency. SKIN: There is no rash. The patient was started on cefepime and metronidazole. LABORATORY DATA: Reviewed. Her urine culture showing E coli, which was pretty much pansensitive, resistant only to ampicillin. White count is 18.6 and hemoglobin 13.7. Her sodium 134, potassium 3.6, and creatinine 3.77. PHYSICAL EXAMINATION: GENERAL: She is currently alert, oriented, does not seem to be in acute distress. VITAL SIGNS: Stable. Currently afebrile. HEENT: Normocephalic, not icteric. NECK: Supple. No JVD. No lymphadenopathy. No thyromegaly. CHEST: Clear bilateral. HEART: S1, S2. No S3, S4, or murmur. ABDOMEN: Soft. Bowel sounds present. No tenderness. No hepatosplenomegaly. ABDOMEN: Soft. Bowel sounds present. No tenderness. There is a hard mass noted in the liver. IMPRESSION: 1. Sepsis on admission, UTI with E coli. We will change her to Ancef. 2. Acute with chronic kidney disease. We will adjust antibiotic. 3. Liver cancer. 4. Plan on 14 days of antibiotic and change to oral once she is clinically better and her nausea and vomiting resolved. 5. We will follow with you. 6. Anemia of chronic disease. 7. Further recommendations to follow. Discussed with the family and discussed with Internal Medicine. MD DUSTY Duenas/LULU /[id number]
[2019-01-26] VITALS (9 sets, daily range): BP systolic 93–127; BP diastolic 50–84
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
[2019-01-26] MEDS: MORPHINE SULFATE INJ 4 MG/ML INJ 1ML IV PRN ×3 (02:08→23:45)
[2019-01-26] MEDS: ONDANSETRON HCL INJ 2MG/ML 2ML 2 MG/ML VIAL IV SCH ×2 (02:08→09:04)
[2019-01-26] MEDS: LANOLIN 4.5 OZ OINT TP SCH ×2 (02:08→13:25)
--- NOTE | 2019-01-26 02:34 | NUR ---
Patient assisted to connect purewick at this time. Will continue to monitor.
[2019-01-26] MEDS: SODIUM BICARBONATE 8.4% 150 ML in DEXTROSE 5% 1,000 ML IV SCH (03:56)
[2019-01-26 05:28] LABS: EOSINOPHILS # (AUTO) 0.1 (0.0-0.4); EOSINOPHILS % 0.2 % (0.0-6.0); HEMATOCRIT 35.5 % (34.2-44.1); LYMPHOCYTES # (AUTO) 1.4 (1.0-3.2); LYMPHOCYTES % 5.8 % (18.0-39.1); MEAN CORPUSCULAR HGB CONC 33.8 g/dL (31-35); MEAN CORPUSCULAR VOLUME 82.8 fL (81-99); MONOCYTES # (AUTO) 1.8 (0.2-0.8); MONOCYTES % 7.7 % (4.4-11.3); NEUTROPHILS # (AUTO) 18.5 (2.1-6.9); NEUTROPHILS % 77.8 % (38.7-80.0); PLATELET COUNT 98 x10e3/uL (140-360); RED BLOOD COUNT 4.29 x10e6/uL (3.6-5.1); RED CELL DISTRIBUTION WIDTH 15.1 % (11.7-14.4)
[2019-01-26] MEDS: TACROLIMUS 0.5 MG CAP PO SCH ×2 (05:40→17:23)
[2019-01-26 05:49] LABS: ANION GAP 21.4 mmol/L (8-16); CALCIUM 8.6 mg/dL (8.4-10.2); CREATININE, SERUM 4.22 mg/dL (0.57-1.11); POTASSIUM 3.4 mmol/L (3.5-5.1)
--- NOTE | 2019-01-26 07:02 | NUR ---
Report given to oncoming nurse. No issued noted.
--- NOTE | 2019-01-26 07:20 | NUR ---
Pt received resting in bed with at bedside. Alert and oriented x4. Oriented to staff and surroundings, encouraged to press call head if help needed. Pt verbalized understanding of teaching. Will monitor
[2019-01-26] MEDS: MYCOPHENOLATE 180 MG PO SCH ×3 (09:00→20:57)
[2019-01-26] MEDS: PREDNISONE 5 MG TAB PO SCH (09:04)
[2019-01-26] MEDS: HEPARIN SOD (PORCINE) 5,000 UNIT/ML VIAL SC SCH ×2 (09:04→20:56)
[2019-01-26] MEDS: PANTOPRAZOLE SOD 40 MG TABEC PO SCH (09:04)
[2019-01-26] MEDS: MIDODRINE HCL 5 MG TABLET PO SCH ×3 (09:04→17:23)
--- NOTE | 2019-01-26 09:04 | NUR ---
All meds given to pt and . Encouraged to eat breakfast. Pt turned and repositioned. Emotional support given. Will monitor
[2019-01-26] MEDS ORDERED: ONDANSETRON HCL 4 MG ORAL DISINTEGRATING TAB SL PRN (10:30)
[2019-01-26] MEDS ORDERED: ONDANSETRON HCL 4 MG ORAL DISINTEGRATING TAB PO PRN (10:30)
--- NOTE | 2019-01-26 11:21 | NUR ---
EDUCATED ABOUT IMM, SIGNED, FILED IN CHART, WITH COPY LEFT WITH FAMILY AT BEDSIDE. , SPOKE WITH [facility] WAITING FOR DECISION FOR INPT VERSES PT GOING TO SISTER IN [facility]
--- NOTE | 2019-01-26 12:13 | NUR ---
PT SIGNED UP WITH [facility], WHEN DOCTOR READY TO DISCHARGE CALL JOSE AT [facility] [employer] [phone] HE WILL DELIVER ALL EQUIPMENT IE HOSPITAL BED O2 ETC AND SET UP TRANSPORT TO LOCATION.
[2019-01-26] MEDS: POLYETHYLENE GLYCOL 3350 17 GM PACK PO SCH (12:14)
[2019-01-26] MEDS: CEFAZOLIN SOD 1 GM/NS 50ML 50 ML IV SCH (12:14)
--- NOTE | 2019-01-26 12:20 | NUR ---
Pt requested to sit in recliner. Assisted into recliner with aid of 2 Nurses. Emotional support given. Will monitor
--- NOTE | 2019-01-26 12:30 | NUR ---
Pt requested to get back in bed. Dr. Wan notified regarding lack of urine from pt. Lasix ordered x3 doses. Pt assisted into bed. Will monitor
[2019-01-26] MEDS ORDERED: SIMETHICONE 80 MG CHEW PO PRN (12:45)
[2019-01-26] MEDS: FUROSEMIDE INJ 10 MG/ML 4 ML VIAL IV SCH ×2 (13:25→20:54)
[2019-01-26 13:32] LABS: LYMPHOCYTES % (MANUAL) 5 % (19-48); METAMYELOCYTES % (MANUAL) 3 % (0-0); MONOCYTES % (MANUAL) 8 % (3.4-9.0); MYELOCYTES % (MANUAL) 3 % (0-0); NEUTROPHILS % (MANUAL) 79 % (40-74)
[2019-01-26 13:33] LABS: ANISOCYTOSIS SLIGHT; PLATELET ESTIMATE SLIGHTLY DECREASED; PLATELET MORPHOLOGY COMMENT NORMAL; RBC MORPHOLOGY COMMENT NORMAL
--- NOTE | 2019-01-26 14:43 | Progress Note ---
DATE: 01/26/2019 Medicine Progress Note SUBJECTIVE: The patient is alert and oriented x4 on examination. There is family at bedside. There were interested in inpatient hospice only. I discussed this case with Oncology and they felt that the patient has significant metastatic disease that hospice is the only intervention or the only true option for this patient. She is still very weak and debilitated. Not a good candidate at this time for any chemotherapy. OBJECTIVE: VITAL SIGNS: Temperature 97, pulse 77, respiratory rate 19, blood pressure 105/71, pulse ox 95% on 2 L nasal cannula. GENERAL: Not in acute distress. Alert and oriented x3. Cooperative on examination. HEENT: Head is normocephalic and atraumatic. Eyes; pupils are equal, round, and reactive to light bilaterally. Extraocular movements are intact bilaterally. Throat, no evidence of erythema or exudates in the posterior pharynx. Has poor dentition. NECK: Supple. Good range of motion. PULMONARY: Clear to auscultation bilaterally. No wheezing, no rales, no rhonchi, no crackles appreciated. CARDIOVASCULAR: Positive S1, S2. No murmurs, rubs, or gallops appreciated. ABDOMEN: Soft, nondistended, and nontender to palpation. Bowel sounds present. MUSCULOSKELETAL: Strength is 5/5 throughout. No evidence of any muscle deficits on examination. No weakness appreciated. NEUROLOGICAL: Cranial nerves II through XII grossly intact. No evidence of any neurological deficits on exam. SKIN: Intact. Warm to touch. Good cap refill. PSYCHIATRIC: Normal affect and mood. EXTREMITIES: No edema. Good range of motion throughout. LAB FINDINGS: Show white count 23, hemoglobin 12, hematocrit is 35, platelets of 98. Chemistry; sodium 136, potassium 3.4, chloride 100, bicarb 18, anion gap of 21. BUN is 100, creatinine is 4.22, glucose is 203. Lactic acid is 40.9. Calcium is 8.6. LFTs were elevated. Total bilirubin was 2.2 , AST 112, ALT 66, alkaline phosphatase 453. MICROBIOLOGY: Urine cultures are positive. Blood cultures, no growth to date. IMAGING STUDIES: Nothing new. IMPRESSION: 1. Sepsis secondary to urinary tract infection with leukocytosis and hypotension. 2. Anion gap metabolic acidosis. 3. Hypotension, improving. 4. Stage IV hepatocellular carcinoma felt to be likely gastric in nature according to Oncology. 5. donor kidney transplant, now renal failure. 6. Generalized weakness and debilitation. PLAN: At this time, it seems that the patient is agreeable to hospice, but the family is considering other options with the patient. At this time, I discussed with them about hospice options and if they need more information to discuss with this with the oncologist. I personally spoke with the oncologist by phone. The patient's performance status is very poor significant disease and her severely debilitation. She is currently not a good candidate for chemotherapy and the best two option for this patient is hospice services. At this time, we are going to continue with broad-spectrum IV antibiotics. Monitor the cultures and ID is following very closely. In relation to her renal failure, academic adviser has been consulted and he is managing accordingly. We will continue with same plan of care. Get a.m. labs. We have discussed this with them thoroughly at bedside with the family with the nurse present. At this time, the patient will make a final decision in terms of hospice versus getting a 2nd opinion if she wishes or the family wishes from another oncologist. At this time, we will continue same plan of care. MD KATHY Carrera/LULU /[id number]
--- NOTE | 2019-01-26 17:30 | NUR ---
No urine output noted. Bladder scan done. 121ml noted. Will follow up
--- NOTE | 2019-01-26 18:38 | NUR ---
Dr. Herr notified regarding k3.4, and no urine output. No special order given. Will endorse to next shift
--- NOTE | 2019-01-26 19:00 | NUR ---
Received patient from day nurse, patient stable. patient encouraged to call for help, bed in lowest position and locked needed items beside bed
--- NOTE | 2019-01-26 19:05 | NUR ---
Handoff given to oncoming shift
[2019-01-26] MEDS: SENNA-S TABLET PO SCH (20:54)
[2019-01-27] VITALS (9 sets, daily range): BP systolic 81–123; BP diastolic 44–85
[2019-01-27] MEDS: LANOLIN 4.5 OZ OINT TP SCH ×2 (01:15→12:50)
[2019-01-27 04:57] LABS: EOSINOPHILS # (AUTO) 0.1 (0.0-0.4); EOSINOPHILS % 0.2 % (0.0-6.0); HEMATOCRIT 39.3 % (34.2-44.1); HEMOGLOBIN 13.6 g/dL (12.0-16.0); LYMPHOCYTES # (AUTO) 1.8 (1.0-3.2); MEAN CORPUSCULAR HEMOGLOBIN 28.2 pg (28-32); MEAN CORPUSCULAR HGB CONC 34.6 g/dL (31-35); MEAN CORPUSCULAR VOLUME 81.4 fL (81-99); MONOCYTES # (AUTO) 2.1 (0.2-0.8); MONOCYTES % 7.2 % (4.4-11.3); NEUTROPHILS # (AUTO) 22.3 (2.1-6.9); NEUTROPHILS % 76.4 % (38.7-80.0); PLATELET COUNT 93 x10e3/uL (140-360); RED BLOOD COUNT 4.83 x10e6/uL (3.6-5.1); RED CELL DISTRIBUTION WIDTH 15.6 % (11.7-14.4)
[2019-01-27 05:11] LABS: ALBUMIN 1.9 g/dL (3.5-5.0); ALBUMIN/GLOBULIN RATIO 0.6 (0.8-2.0); ANION GAP 21.7 mmol/L (8-16); CALCIUM 9.1 mg/dL (8.4-10.2); CREATININE, SERUM 5.14 mg/dL (0.57-1.11); POTASSIUM 3.7 mmol/L (3.5-5.1)
[2019-01-27] MEDS: FUROSEMIDE INJ 10 MG/ML 4 ML VIAL IV SCH (05:48)
[2019-01-27] MEDS: TACROLIMUS 0.5 MG CAP PO SCH ×2 (05:48→17:23)
[2019-01-27] MEDS ORDERED: CLONIDINE HCL 0.1 MG TAB PO PRN (06:30)
--- NOTE | 2019-01-27 06:50 | NUR ---
patient condition throughout the night was stable, patient endorsed to next shift for continuity of care.
--- NOTE | 2019-01-27 06:59 | NUR ---
patient endorsed to next shift for continuity of care
[2019-01-27 07:12] LABS: BAND NEUTROPHILS % (MANUAL) 4 %; LYMPHOCYTES % (MANUAL) 8 % (19-48); MONOCYTES % (MANUAL) 6 % (3.4-9.0); NEUTROPHILS % (MANUAL) 82 % (40-74); NUCLEATED RED BLOOD CELLS 2; RBC MORPHOLOGY COMMENT NORMAL
[2019-01-27 07:13] LABS: PLATELET ESTIMATE SLIGHTLY DECREASED; PLATELET MORPHOLOGY COMMENT NORMAL
--- NOTE | 2019-01-27 08:53 | NUR ---
Binh LUCIO rounded, aware of labs. Dr Wan on unit and aware of labs, pt edemetous and minimal urine output. MD spoke with pt and spouse, wants dialysis but patient does not. per patient and MD, dialysis will not be ordered. new orders to stop lasix, 1x dose of bumex and monitor output. no labs to be drawn.
[2019-01-27] MEDS: POLYETHYLENE GLYCOL 3350 17 GM PACK PO SCH (09:00)
[2019-01-27] MEDS: MYCOPHENOLATE 180 MG PO SCH ×3 (09:00→21:18)
[2019-01-27] MEDS ORDERED: BUMETANIDE INJ 0.25MG/ML 4ML VIAL IV ONE (09:00)
--- NOTE | 2019-01-27 09:53 | NUR ---
dr faustin rounded with pt, and sister/other family present. plan of care and tx discussed, patient verbalized understanding of diagnosis and treatment, verbalized she wants to go home with hospice care, explained hospice, pt and family verbalized understanding, MD discussed current labs and condition with pt, verbalized understanding, MD discussed code status with patient, patient verbalized she does not want CPR or intubation, requesting change to DNR. pt and family stated they discussed change to DNR with hospice rep yesterday. updated code change in system.
[2019-01-27] MEDS: MIDODRINE HCL 5 MG TABLET PO SCH ×3 (10:15→17:23)
[2019-01-27] MEDS: PREDNISONE 5 MG TAB PO SCH (10:15)
[2019-01-27] MEDS: HEPARIN SOD (PORCINE) 5,000 UNIT/ML VIAL SC SCH ×2 (10:16→21:19)
[2019-01-27] MEDS: PANTOPRAZOLE SOD 40 MG TABEC PO SCH (10:16)
--- NOTE | 2019-01-27 12:26 | NUR ---
hospice rep on unit, arranging all equipment for home delivery. per dr faustin, keep patient overnight to wait for pending cultures to see if able to send po rx for home treatment and pt can dc home tomorrow. updated hospice rep and patient.
--- NOTE | 2019-01-27 12:35 | NUR ---
Spoke to Rene with [facility]. He stated he spoke with Dr. Milan who told him he will discharge the pt tomorrow morning. Equipment and medications have been ordered. Should be delivered by 5pm today. His client service coordinator will fax OOH-DNR form to nurses station. ar manager to call Luis Eduardo [phone] once discharge order placed so he can have nurse meet pt at home.
--- NOTE | 2019-01-27 13:53 | Progress Note ---
DATE: 01/27/2019 Medicine Progress Note SUBJECTIVE: The patient's labs have continued to get worse. I had a long discussion with the patient at bedside with the family present using the nurse as well present during the conversation. The patient has agreed to DNR/DNI and has also agreed to hospice services. She understands that her illness has progressively gotten worse with agreed to hospice services. She has also agreed to DNR/DNI. OBJECTIVE: VITAL SIGNS: Temperature 98.2, pulse 75, respiratory rate is 20, blood pressure 117/85, and pulse ox 98% on 2 L nasal cannula. GENERAL: Not in acute distress. Alert and oriented x3. Cooperative on examination. HEENT: Head is normocephalic and atraumatic. Eyes; pupils are equal, round, and reactive to light bilaterally. Extraocular movements are intact bilaterally. Throat, no evidence of erythema or exudates in the posterior pharynx. Has poor dentition. NECK: Supple. Good range of motion. PULMONARY: Clear to auscultation bilaterally. No wheezing, no rales, no rhonchi, no crackles appreciated. CARDIOVASCULAR: Positive S1, S2. No murmurs, rubs, or gallops appreciated. ABDOMEN: Soft, nondistended, and nontender to palpation. Bowel sounds present. MUSCULOSKELETAL: Strength is 5/5 throughout. No evidence of any muscle deficits on examination. No weakness appreciated. NEUROLOGICAL: Cranial nerves II through XII grossly intact. No evidence of any neurological deficits on exam. SKIN: Intact. Warm to touch. Good cap refill. PSYCHIATRIC: Normal affect and mood. EXTREMITIES: No edema. Good range of motion throughout. LAB FINDINGS: Show white count is 29, hemoglobin 13.6, hematocrit 39, and platelets of 93. Chemistry; sodium 138, potassium 3.7, chloride 98, bicarb 22, anion gap of 21, BUN is 105, creatinine is 5.1, lactic acid increased to 43, total albumin 3.5. LFTs were abnormal, elevated. MICROBIOLOGY: Urine culture shows E coli. Blood cultures, no growth today. IMPRESSION: 1. Sepsis secondary to urinary tract infection with leukocytosis/lactic acidosis/hypotension. 2. Anion gap metabolic acidosis. 3. Hypotension, mild. 4. 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 Now, her Oncology recommends hospice. 5. donor kidney transplant, now worsening renal failure. 6. Thrombocytopenia likely due to underlying sepsis. 7. Generalized weakness and debilitation. PLAN: At this time, I have discussed with the patient, with the family, and the nurse present throughout the entire conversation. The patient is alert and oriented x4 with no issues. She has agreed to hospice at home. She wants us to go ahead and arrange for that. I have discussed with her that her overall prognosis will be very poor. She has also heard from the oncologist that she is best with hospice services. Her labs have not improved. She has worsening acidosis. White count had been elevated as well and her renal function has not improved as well. She has come to terms with also code status being DNR/DNI as well as home with hospice care. In the interim, we will continue with same medical management with no changes, IV antibiotics following her until the patient is discharged on hospice to family. The patient verbalized understanding and agrees to plan of care at this time. DNR had been placed into the system and hospice is being arranged. I spent more than 35 minutes of critical care time talking to . MD KATHY Carrera/LULU /[id number]
[2019-01-27] MEDS: SIMETHICONE 80 MG CHEW PO SCH ×2 (17:23→23:59)
[2019-01-27] MEDS: ALBUTEROL/IPRATROPIUM 3 ML NEB NEB SCH (18:30)
--- NOTE | 2019-01-27 19:40 | NUR ---
ASSESSMENT: Spiritual concern Pt's overwhelmed by 's illness. Pt accepting of hospice and DNAR. Intervention: Provided empathic listening. Facilitated conversation concerning end of life decisions and pt's autonomy. Provided prayer. Outcome: Followed up with nursing staff. BRIGITTE S[employer] Equipment Operator [employer] Spiritual Care Department O: [phone] Pager: [phone] ([phone] number calling from)
[2019-01-27] MEDS: MORPHINE SULFATE INJ 4 MG/ML INJ 1ML IV PRN (21:15)
[2019-01-27] MEDS: SENNA-S TABLET PO SCH (21:18)
[2019-01-28] MEDS: ALBUTEROL/IPRATROPIUM 3 ML NEB NEB SCH ×2 (00:22→07:25)
[2019-01-28] MEDS: LANOLIN 4.5 OZ OINT TP SCH (01:21)
[2019-01-28 02:16] VITALS: BP 52/39
[2019-01-28 02:18] VITALS: BP 41/16
[2019-01-28 02:20] VITALS: BP 95/77
[2019-01-28 05:00] VITALS: BP 73/62
[2019-01-28] MEDS: TACROLIMUS 0.5 MG CAP PO SCH (05:53)
[2019-01-28] MEDS: SIMETHICONE 80 MG CHEW PO SCH ×2 (05:53→08:38)
--- NOTE | 2019-01-28 07:00 | NUR ---
Received patient from material handler 2nd shift nurse, she is awake, c/o of pain, will medicate with pain medication. Patient is DNR and hospice will come in later per handoff report. Keeping patient comfortable, unable to swallow medications per material handler 2nd shift report. at bed side, bed in low position, breaks on, belongings and call light within reach will continue to maintain patient comfortable.
--- NOTE | 2019-01-28 07:03 | NUR ---
Report given to oncoming MICHA Truong,walking round done.
[2019-01-28] MEDS: MIDODRINE HCL 5 MG TABLET PO SCH (08:00)
[2019-01-28] MEDS: MORPHINE SULFATE INJ 4 MG/ML INJ 1ML IV PRN ×2 (08:18→09:20)
[2019-01-28] MEDS: HEPARIN SOD (PORCINE) 5,000 UNIT/ML VIAL SC SCH (08:38)
[2019-01-28] MEDS: PANTOPRAZOLE SOD 40 MG TABEC PO SCH (08:38)
[2019-01-28] MEDS: MYCOPHENOLATE 180 MG PO SCH (08:38)
[2019-01-28] MEDS: PREDNISONE 5 MG TAB PO SCH (08:38)
[2019-01-28] MEDS: POLYETHYLENE GLYCOL 3350 17 GM PACK PO SCH (08:38)
[2019-01-28] MEDS ORDERED: MORPHINE SULFATE INJ 4 MG/ML INJ 1ML ONE (09:19)
[2019-01-28] MEDS ORDERED: MORPHINE SULFATE INJ 4 MG/ML INJ 1ML IV ONE (09:30)
[2019-01-28] MEDS ORDERED: LORAZEPAM INJ 2 MG/ML VIAL IV ONE ×2 (09:30)
--- NOTE | 2019-01-28 10:56 | NUR ---
Pt's IV access leaking. Unable to restart IV access due to swelling, and refusing to have any further IV stick. Dr. Milan notified, and Buccal Morphine ordered, and given. Will follow up
[2019-01-28] MEDS ORDERED: MORPHINE SULFATE ORAL SOLN 10 MG/5 ML UDC GT ONE ×3 (11:00→12:00)
--- NOTE | 2019-01-28 11:19 | NUR ---
Pt restless, and thrashing in bed. Second dose of Morphine given 4mg buccal given. Emotional support given to Pt and family. Educated pt & family regarding side effects & advantage of medication. Will monitor
--- NOTE | 2019-01-28 11:21 | NUR ---
ASSESSMENT: Spiritual Distress Mold Shop Supervisor called in to provide emotional/spiritual support. Pt's continues to be overwhelmed by 's illness. Pt's expressing emotions thru words and tears. Pt's family and friends at bedside. Intervention: Provided empathic listening, pastoral presence and prayer. Encouraged appropriate support. Followed up with nursing staff. Outcome: Pt's family expressed appreciation for continued support. BRIGITTE Lynnelain Spiritual Care Department O: [phone] Pager: [phone] ([phone] number calling from) .
[2019-01-28] MEDS ORDERED: MORPHINE SULFATE ORAL SOLN 10 MG/5 ML UDC GT SCH ×2 (12:00)
[2019-01-28] MEDS ORDERED: SCOPOLAMINE 1.5 MG PATCH TOP ONE ×2 (12:00)
--- NOTE | 2019-01-28 12:10 | NUR ---
writes nurse communication order for palliative care. dnr order is in place.
--- NOTE | 2019-01-28 12:27 | NUR ---
Pt with agonal breathing, restless. Morphine 4mg Buccal given at 1227 as per family's request. Emotional support given. Will closely monitor
--- NOTE | 2019-01-28 12:45 | NUR ---
At 1241, pt noted without respiration, and pulse. Family at bedside. Dr. Mccracken & Dr. Milan notified, and pt pronounced at 1241. Emotional support given. Charge nurse & machine records units supervisor notified.
--- NOTE | 2019-01-28 13:52 | Progress Note ---
DATE: 01/28/2019 The patient is currently agonal breathing and has been agonal breathing since this morning. She is DNR/DNI. Family has agreed yesterday to hospice services. The patient now is stable to be transferred out to home. They have agreed to keep the patient here. Her last systolic blood pressure, there is some reading that shows in the 70s, 40s and 50s systolically. She is now currently having no bleeding. I spoke with the family at bedside. There were several family members at bedside with the nurse present. They have agreed to make her palliative care now. We lost IV access and now the patient is being administered by the nurse. Family has agreed to . Scopolamine patch will be added. The patient's family is grateful with her care. At this time, we will continue with the until the patient passes. summary will follow once is present. I answered all the questions with the family at bedside and they verbalized understanding. Discussed plan of care with the nursing staff as well. MD KATHY Carrera/LULU /[id number]
--- NOTE | 2019-01-28 14:44 | NUR ---
Patient , provided post mortem care, body discharged to [facility], belongs given to family.
--- NOTE | 2019-01-30 05:00 | Discharge Summary ---
TIME OF : 12:41 p.m. FINAL DISCHARGE DIAGNOSES: 1. Cardiopulmonary arrest. 2. Sepsis with underlying urinary tract infection with lactic acidosis. 3. 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 4. donor kidney transplant, now in renal failure. 5. Thrombocytopenia secondary to sepsis. 6. Anion gap metabolic acidosis secondary to lactic acidosis. 7. Generalized weakness and medically debilitated. CONSULTANTS: Nephrology, Hematology, and Oncology. LABORATORY DATA: White count 29, hemoglobin 13.6, hematocrit 39, and platelets of 93. Coagulation; PT 21, INR 1.7, PTT 25. Chemistry; sodium 138, potassium 3.7, chloride 98, bicarb 22, anion gap of 21, BUN 105, creatinine is 5.1, glucose 141. Lactic acid was 43. LFTs were elevated. Urine culture, E coli. Blood cultures, no growth. IMAGING STUDIES: V/Q scan had very low probability of pulmonary embolism. CT abdomen had done that shows cirrhotic hepatic morphology. Multifocal hepatic masses not well visualized, but multifocal hepatocellular carcinoma is concerning, but multifocal . Small volume ascites. Colonic diverticulosis without diverticulitis. Chest x-ray shows evidence of mild pulmonary venous congestion. HOSPITAL COURSE: This is a 63-year-old female, recently diagnosed with metastatic presumed to be hepatocellular carcinoma, possibly gastric, in which she was just recently diagnosed to [facility], comes in with worsening medically debilitation and found to be in sepsis with leukocytosis and lactic acidosis as well as hypotension. The patient was admitted and treated for underlying sepsis. She was on broad-spectrum IV antibiotics. Blood cultures were negative. Urine cultures were positive for E coli. ID was involved and consulted as well. The patient was also found to have anion gap metabolic acidosis from likely underlying renal failure and which Nephrology was consulted. The patient is a known donor kidney transplant on one of the local nephrologists care. The patient's renal function continues to deteriorate and decreased urine output as well. At this time, Oncology was also consulted due to underlying stage IV cancer presumed to be gastric in nature, but possibly hepatocellular carcinoma. After further discussion with the family, Oncology discussed with them that the patient will likely benefit from hospice services. She has several family meetings at bedside including the patient's sister and other family members, which were present including the patient with nurses present and we discussed about hospice services. The family and the patient both hesitant initially going back and forth for several days about hospice, but agreed to hospice on 01/27/2019 on Tuesday. They agreed to hospice as per recommendations by the oncologist. Also Nephrology felt that the patient would not benefit from the hemodialysis due to poor condition. I have also discussed with them on 01/27/2019 about hospice at which later that day, they agreed to hospice services and will likely be discharged on 01/28/2019. Family agreed to DNR/DNI status as well, which was placed into the system. On 01/28/2019, the patient continued to deteriorate, becoming very unresponsive and had agonal breathing. The blood pressure was very low, very hypotensive. At that time, the family was okay keeping the patient here and placing her under comfort measures only under palliative care. The patient was given pain medication and angiolytics as well as per family's wishes. I discussed with the family prior to the patient expiring and they verbalized understanding and agreed with plan of care. The patient on 01/28/2019 at 12:41 p.m. The patient was pronounced by the ER physician. Condolences were given to the family. The family is very appreciative of our care here at the hospital. The patient was DNR/DNI and comfort measures only as per family's wishes. DISPOSITION: To the home. MD KATHY Carrera/MODL /[id number]
== END 2019-01-28 14:44 | disposition expired | DRG 871 ==
LOC: ER 16:38 → ERHOLD 20:29 → IMCU 01-24 00:03
PROVIDERS: ADMIT Internal Medicine; ATTEND Internal Medicine
DX: A41.9 Sepsis, unspecified organism (principal); N18.6 End stage renal disease; R65.21 Severe sepsis with septic shock; G93.41 Metabolic encephalopathy; N17.9 Acute kidney failure, unspecified; E87.2 Acidosis; C16.9 Malignant neoplasm of stomach, unspecified; N39.0 Urinary tract infection, site not specified; R18.8 Other ascites; T86.11 Kidney transplant rejection; C78.7 Secondary malignant neoplasm of liver and intrahepatic bile duct; Z68.41 Body mass index [BMI] 40.0-44.9, adult; Z94.0 Kidney transplant status; K72.90 Hepatic failure, unspecified without coma; R63.0 Anorexia; Z66 Do not resuscitate; I46.9 Cardiac arrest, cause unspecified; D69.59 Other secondary thrombocytopenia; B96.20 Unspecified Escherichia coli [E. coli] as the cause of diseases classified elsewhere; D63.8 Anemia in other chronic diseases classified elsewhere; K80.20 Calculus of gallbladder without cholecystitis without obstruction; K57.90 Diverticulosis of intestine, part unspecified, without perforation or abscess without bleeding; D89.9 Disorder involving the immune mechanism, unspecified; K25.9 Gastric ulcer, unspecified as acute or chronic, without hemorrhage or perforation; K20.9 Esophagitis, unspecified; K29.70 Gastritis, unspecified, without bleeding; E86.0 Dehydration; G89.3 Neoplasm related pain (acute) (chronic); Z87.891 Personal history of nicotine dependence; E66.9 Obesity, unspecified
CPT/HCPCS: 36415; 71045; 74176; 78582; 80048; 80053; 80076; 81001; 82550; 82553; 82948; 83605; 83735; 83880; 84443; 84484; 85025; 85610; 85730; 87040; 87086; 87186; 87493; 93005; 94640; 96361; 97139; 99284; A9540; A9558; J0690; J0692; J1644; J1940; J2060; J2270; J2405; J3370; J7030; J7070; J7507; J7512